=== PATIENT | female | born 1995 | race American Indian/Alaskan Native ===

== ENCOUNTER 2017-07-09 02:15 | Emergency (ER) | payer OTHER ==
[2017-07-09 03:03] LABS: Basophils % (Auto) 0.5 % (0.0-1.8); Hematocrit 34.6 % (30.3-42.9); Hemoglobin 11.1 gm/dl (10.1-14.3); Mean Corpuscular HGB Conc 32 % (30-34); Mean Corpuscular Hemoglobin 24 pg (28-32); Mean Corpuscular Volume 75 fl (79-97); Platelet Count 225 K/mm3 (140-440); Red Blood Count 4.65 M/mm3 (3.65-5.03); Red Cell Distribution Width 13.8 % (13.2-15.2); White Blood Count 3.9 K/mm3 (4.5-11.0)
[2017-07-09 08:25] VITALS: BP 130/84
--- NOTE | 2017-07-09 09:53 | Emergency Department Report ---
HPI - General Chief Complaint: Arrhythmia/Palpitations Time Seen by Provider: 07/09/17 09:33 - HPI HPI: Room 25 The patient is a 21-year-old female presenting with a chief complaint of palpitations. The patient states for the past 2 days she's had intermittent palpitations associated with feeling weak and dizzy. The patient states the episodes occur approximately every 3 hours. He denies having chest pain or shortness of breath with her symptoms. The patient states she has a history of anxiety but these symptoms do not feel like her anxiety because she is normally fidgety and shortness of breath with her anxiety attacks. The patient states that she currently feels fine/asymptomatic. Location: [see above] Duration: Intermittent 2 days Quality: Palpitations, weakness Severity: Moderate Modifying factors: [see above] Context: [see above] Mode of transportation: [not driving] ED Past Medical Hx - Past Medical History Previous Medical History?: Yes Hx Psychiatric Treatment: Yes (anxiety) Additional medical history: anemia gerd - Surgical History Past Surgical History?: No Hx Cholecystectomy: Yes - Family History Family history: no significant - Social History Smoking Status: Never Smoker Substance Use Type: None (denies illicit drug use) - Medications Home Medications: Home Medications Medication Instructions Recorded Confirmed Last Taken Type hydrOXYzine PAMOATE [Vistaril] 50 mg PO Q6HR PRN #10 capsule 07/09/17 Unknown Rx ED Review of Systems ROS: Stated complaint: HEART RACING Other details as noted in HPI Comment: All other systems reviewed and negative Constitutional: weakness. denies: chills, fever Eyes: denies: eye pain, eye discharge, vision change ENT: denies: ear pain, throat pain Respiratory: denies: cough, shortness of breath, wheezing Cardiovascular: palpitations. denies: chest pain Endocrine: no symptoms reported Gastrointestinal: denies: abdominal pain, nausea, diarrhea Genitourinary: denies: urgency, dysuria, discharge Musculoskeletal: denies: back pain, joint swelling, arthralgia Skin: denies: rash, lesions Neurological: other (dizziness) Psychiatric: denies: anxiety, depression Hematological/Lymphatic: denies: easy bleeding, easy bruising Physical Exam - Physical Exam Vital Signs: Vital Signs 07/09/17 07/09/17 02:23 08:23 Temperature 98.7 F 98.1 F Pulse Rate 89 62 Respiratory 20 16 Rate Blood Pressure 116/79 Blood Pressure 130/84 [Right] O2 Sat by Pulse 100 100 Oximetry Physical Exam: GENERAL: The patient is well-developed well-nourished female lying on stretcher not appearing to be in acute distress. [] HEENT: Normocephalic. Atraumatic. Extraocular motions are intact. Patient has moist mucous membranes. No nystagmus NECK: Supple. No meningitic signs are noted. Trachea midline CHEST/LUNGS: Clear to auscultation. There is no respiratory distress noted. HEART/CARDIOVASCULAR: Regular. There is no tachycardia. There is no gallop rub or murmur. ABDOMEN: Abdomen is soft, nontender. Patient has normal bowel sounds. There is no abdominal distention. SKIN: There is no rash. There is no edema. There is no diaphoresis. NEURO: The patient is awake, alert, and oriented. The patient is cooperative. The patient has no focal neurologic deficits. The patient has normal speech. Cranial nerves II through XII grossly intact, no drift MUSCULOSKELETAL: There is no evidence of acute injury. ED Course Vital Signs 07/09/17 07/09/17 02:23 08:23 Temperature 98.7 F 98.1 F Pulse Rate 89 62 Respiratory 20 16 Rate Blood Pressure 116/79 Blood Pressure 130/84 [Right] O2 Sat by Pulse 100 100 Oximetry ED Medical Decision Making - Lab Data Result diagrams: 07/09/17 02:49 07/09/17 09:51 Laboratory Tests 07/09/17 07/09/17 07/09/17 02:49 09:51 09:51 WBC 3.9 L RBC 4.65 Hgb 11.1 Hct 34.6 MCV 75 L MCH 24 L MCHC 32 RDW 13.8 Plt Count 225 Lymph % (Auto) 28.0 [place] % (Auto) 11.1 H Eos % (Auto) 1.0 Baso % (Auto) 0.5 Lymph # 1.1 L [place] # 0.4 Eos # 0.0 Baso # 0.0 Seg Neutrophils % 59.4 Seg Neutrophils # 2.3 D-Dimer < 135.00 Sodium 141 Potassium 3.8 Chloride 102.0 Carbon Dioxide 24 Anion Gap 19 BUN 13 Creatinine 0.7 Estimated GFR > 60 BUN/Creatinine Ratio 18.57 Glucose 85 Calcium 9.1 Total Creatine Kinase 309 H CK-MB (CK-2) 1.3 CK-MB (CK-2) Rel Index 0.4 Troponin T < 0.010 TSH HCG, Qual 07/09/17 07/09/17 09:51 09:51 WBC RBC Hgb Hct MCV MCH MCHC RDW Plt Count Lymph % (Auto) [place] % (Auto) Eos % (Auto) Baso % (Auto) Lymph # [place] # Eos # Baso # Seg Neutrophils % Seg Neutrophils # D-Dimer Sodium Potassium Chloride Carbon Dioxide Anion Gap BUN Creatinine Estimated GFR BUN/Creatinine Ratio Glucose Calcium Total Creatine Kinase CK-MB (CK-2) CK-MB (CK-2) Rel Index Troponin T TSH 1.530 HCG, Qual Negative Laboratory Tests 07/09/17 07/09/17 07/09/17 02:49 09:51 09:51 WBC 3.9 L RBC 4.65 Hgb 11.1 Hct 34.6 MCV 75 L MCH 24 L MCHC 32 RDW 13.8 Plt Count 225 Lymph % (Auto) 28.0 [place] % (Auto) 11.1 H Eos % (Auto) 1.0 Baso % (Auto) 0.5 Lymph # 1.1 L [place] # 0.4 Eos # 0.0 Baso # 0.0 Seg Neutrophils % 59.4 Seg Neutrophils # 2.3 D-Dimer < 135.00 Sodium 141 Potassium 3.8 Chloride 102.0 Carbon Dioxide 24 Anion Gap 19 BUN 13 Creatinine 0.7 Estimated GFR > 60 BUN/Creatinine Ratio 18.57 Glucose 85 Calcium 9.1 Total Creatine Kinase 309 H CK-MB (CK-2) 1.3 CK-MB (CK-2) Rel Index 0.4 Troponin T < 0.010 TSH Free T4 HCG, Qual 07/09/17 07/09/17 09:51 09:51 WBC RBC Hgb Hct MCV MCH MCHC RDW Plt Count Lymph % (Auto) [place] % (Auto) Eos % (Auto) Baso % (Auto) Lymph # [place] # Eos # Baso # Seg Neutrophils % Seg Neutrophils # D-Dimer Sodium Potassium Chloride Carbon Dioxide Anion Gap BUN Creatinine Estimated GFR BUN/Creatinine Ratio Glucose Calcium Total Creatine Kinase CK-MB (CK-2) CK-MB (CK-2) Rel Index Troponin T TSH 1.530 Free T4 1.43 HCG, Qual Negative - EKG Data -: EKG Interpreted by Me EKG shows normal: sinus rhythm Rate: normal - EKG Data When compared to previous EKG there are: previous EKG unavailable Interpretation: other (no ischemic changes seen) - Differential Diagnosis anxiety, PE, dysrhythmia, anemia,Imbalance, hyperthyroidism Critical care attestation.: If time is entered above; I have spent that time in minutes in the direct care of this critically ill patient, excluding procedure time. ED Disposition Clinical Impression: Palpitations Disposition: DC-01 TO HOME OR SELFCARE Is pt being admited?: No Does the pt Need Aspirin: No Condition: Stable Instructions: Palpitations (ED) Additional Instructions: Return to the emergency department immediately should you develop worsening symptoms, fever, inability to tolerate food or liquid or any other concerns. Prescriptions: hydrOXYzine PAMOATE [Vistaril] 50 mg PO Q6HR PRN #10 capsule PRN Reason: Anxiety Referrals: PRIMARY CARE, [Primary Care Provider] - 3-5 Days Forms: Work/School Release Form(ED) Time of Disposition: 10:53
[2017-07-09 10:31] LABS: Creatine Kinase MB 1.3 ng/mL (0.0-4.0)
[2017-07-09 10:32] LABS: Anion Gap 19 mmol/L; BUN/Creatinine Ratio 18.57; Blood Urea Nitrogen 13 mg/dL (7-17); Calcium 9.1 mg/dL (8.4-10.2); Carbon Dioxide 24 mmol/L (22-30); Creatine Kinase 309 units/L (30-135); Glucose 85 mg/dL (65-100); Potassium 3.8 mmol/L (3.6-5.0); Sodium 141 mmol/L (137-145)
== END 2017-07-09 11:03 | disposition home or self-care (01) ==
LOC: ED 02:15
DX: R00.2 Palpitations (principal); R53.1 Weakness; R42 Dizziness and giddiness
CPT/HCPCS: 36415; 80048; 82550; 82553; 84439; 84443; 84484; 84703; 85025; 85379; 93005; 93010; 99283